=== PATIENT | male | born 1955 | race Caucasian/White ===

== ENCOUNTER → 2018-10-06 | Outpatient (CLI) | payer OTHER ==
[~2018-10-06] MED LIST: AMBIEN5 MG PO; ASPIR 8181 MG PO; DIOVAN HCT 1601 EAC1 PO; FAMOTIDINE20 MG PO; GLIMEPIRIDE2 MG PO; JANUMET XR 50-1 EAC1 PO; LOVAZA1 GM PO; PRAVASTATIN SOD40 MG PO; RAPAFLO8 MG PO; TYLENOL WITH C1 EACH PO; VESICARE5 MG PO; XANAX0.5 MG PO
== END ==
LOC: RAD 16:04
PROVIDERS: ATTEND Urology
DX: N20.0 Calculus of kidney (principal)
CPT/HCPCS: 74018

== ENCOUNTER → 2020-09-25 | Outpatient (CLI) | payer BC | LOC: US 09:35 | PROVIDERS: ATTEND Urology | DX: N13.30 Unspecified hydronephrosis (principal) | CPT/HCPCS: 76770 ==

== ENCOUNTER → 2024-01-30 | Outpatient (REF) | payer MEDICARE, OTHER ==
[~2024-01-30] MED LIST changes: +IOPAMIDOL 370 MG/ML 100 ML INFUS..BTL INJ ONE; +SODIUM CHLORIDE 0.9% 200 ML ONE; +SODIUM CHLORIDE 0.9% 250ML 0 ML ONE
[2024-01-30 10:42] LABS: CREATININE, SERUM 0.79 mg/dL (0.72-1.25)
== END ==
LOC: CT 09:40
PROVIDERS: ATTEND Urology
DX: R31.21 Asymptomatic microscopic hematuria (principal)
CPT/HCPCS: 36415; 74178; 82565; 84520; J7050; Q9967